=== PATIENT | female | born 1970 | race African-American/Black ===

== ENCOUNTER 2020-01-13 13:41 | Outpatient (CLI) | payer OTHER, MEDICARE, SELFPAY ==
--- NOTE | 2020-01-13 | ECG_ITS ---
Measurements Intervals [place] Rate: 75 P: 60 CA: 161 QRS: -19 QRSD: 102 T: 71 QT: 401 QTc: 448 Interpretive Statements SINUS RHYTHM POSSIBLE LEFT ATRIAL ENLARGEMENT BORDERLINE T WAVE ABNORMALITY- LATERAL LEADS BASELINE ARTIFACT- II, III, AVL, AVF, V4-V6 BORDERLINE ECG Electronically Signed On 01-13-2020 14:51:32 TECHNICAL BUYER by Tavares Gonsales D.O.
== END 2020-01-13 13:42 | disposition home or self-care (01) ==
DX: R94.31 Abnormal electrocardiogram [ECG] [EKG] (principal)
CPT/HCPCS: 93005

== ENCOUNTER 2020-10-25 12:45 | Outpatient (CLI) | payer OTHER, MEDICARE, SELFPAY ==
--- NOTE | ~2020-10-25 | MM_ITS ---
EXAMINATION: MM diagnostic esteban BI w xochilt HISTORY: Breast skin lesions TECHNIQUE: ML, MLO and craniocaudal 3-D tomosynthesis images of both breasts were performed and synth etic 2-D images were generated. CAD analysis was submitted and interpreted. COMPARISON: 04/26/2019, 01/05/2014, 12/26/2013 bilateral digital mammogram examinations BREAST PARENCHYMAL COMPOSITION: The breasts are heterogeneously dense, which may obscure small masses . FINDINGS: No suspicious mass or architectural distortion, malignant calcification, skin thickening or retraction or significant new or developing density is detected. Skin lesions are noted. IMPRESSION: 1. No mammographic evidence of malignancy 2. Routine mammographic screening is recommended. BI-RADS Category 2: Benign finding(s). Reviewed, dictated and finalized at location A. MOMETER TESTER
--- NOTE | ~2020-10-25 | US_ITS ---
EXAMINATION: US pelvic complete w TV DATE: 10/25/2020 14:47 INDICATION: Irregular menstruation Comparison:04/26/2020 TECHNIQUE: Multiple transabdominal and endovaginal sonographic images of the pelvis performed. FINDINGS: The uterus measures 9.6 x 7 x 5 cm. Uterine echotexture is diffusely heterogeneous consiste nt with fibroid changes. There are scattered coarse calcifications. Largest fibroid measures 5.9 cm g reatest dimension. Endometrium is not delineated due to underlying fibroid changes. The ovaries are not visualized. There is no free fluid in the pelvis. There are no abnormal masses seen on either side. IMPRESSION: 1. Enlarged fibroid uterus, largest discrete fibroid measures 5.9 cm greatest dimension. Reviewed, dictated and finalized at location B. MATIC BLOCKER IMPRESSION: 1. Enlarged fibroid uterus, largest discrete fibroid measures 5.9 cm greatest d imension.
== END 2020-10-25 12:46 | disposition home or self-care (01) ==
LOC: ANHIMG 12:47
PROVIDERS: Visit Provider Obstetrics & Gynecology
DX: N64.59 Other signs and symptoms in breast (principal); N92.6 Irregular menstruation, unspecified; D25.9 Leiomyoma of uterus, unspecified
CPT/HCPCS: 76830; 76856; 77062; 77066; G0279

== ENCOUNTER 2022-04-08 08:21 | Outpatient (CLI) | payer MEDICARE, SELFPAY ==
--- NOTE | ~2022-04-08 | MM_ITS ---
EXAMINATION: MM screening esteban BI w xochilt HISTORY: Screening mammogram TECHNIQUE: Craniocaudal and mediolateral oblique 3-D tomosynthesis images were obtained and synthetic 2-D images were generated. CAD analysis was submitted and interpreted. COMPARISON: 10/25/2020, 04/26/2019, 12/26/2013 bilateral mammogram examinations To bilateral diagnostic mammogram BREAST PARENCHYMAL COMPOSITION: The breasts are heterogeneously dense, which may obscure small masses . FINDINGS: There is no evidence of suspicious mass, calcification, or architectural distortion to sugg est malignancy in either breast. There has been no suspicious interval change. IMPRESSION: 1. No mammographic evidence of malignancy. 2. Recommend routine screening mammography in one year. BI-RADS Category 1: Negative Reviewed, dictated and finalized at location A.
== END 2022-04-08 08:22 | disposition home or self-care (01) ==
LOC: ANHIMG 08:22
PROVIDERS: Visit Provider Obstetrics & Gynecology
DX: Z12.31 Encounter for screening mammogram for malignant neoplasm of breast (principal)
CPT/HCPCS: 77063; 77067

== ENCOUNTER 2024-02-12 07:14 | Outpatient (CLI) | payer MEDICARE, SELFPAY ==
--- NOTE | ~2024-02-12 | MM_ITS ---
EXAMINATION: MM screening esteban BI w xochilt HISTORY: Screening TECHNIQUE: Craniocaudal and mediolateral oblique 3-D tomosynthesis images were obtained and synthetic 2-D images were generated. CAD analysis was submitted and interpreted. COMPARISON: Comparison to multiple prior studies sequentially, with oldest reviewed study dated 11/2018. BREAST PARENCHYMAL COMPOSITION: Dense: The breasts are heterogeneously dense, which may obscure small masses FINDINGS: There is no evidence of suspicious mass, calcification, or architectural distortion to sugg est malignancy in either breast. There has been no suspicious interval change. IMPRESSION: 1. No mammographic evidence of malignancy. 2. Recommend routine screening mammography in one year. BI-RADS Category 1: Negative Reviewed, dictated and finalized at location A.
== END 2024-02-12 07:15 | disposition home or self-care (01) ==
PROVIDERS: Visit Provider Obstetrics & Gynecology
DX: Z12.31 Encounter for screening mammogram for malignant neoplasm of breast (principal)
CPT/HCPCS: 77063; 77067

== ENCOUNTER 2024-04-10 08:28 | Outpatient (CLI) | payer MEDICARE, SELFPAY ==
--- NOTE | ~2024-04-10 | XR_ITS ---
Clinical Indication: Bronchitis PA and lateral views of the chest: Comparison: 01/14/2015 Findings: The lungs are clear, without evidence of focal consolidation or pleural effusion. Cardiome diastinal silhouette is within normal limits. Cervicothoracic spinal fixation hardware is present. Impression: Clear lungs. Reviewed, dictated and finalized at location . Impression: Clear lungs.
[2024-04-10 10:32] LABS: Appearance Urine Cloudy (Clear); Bacteria Urine None Seen /hpf; Bilirubin Urine Negative (Negative); Blood Urine Negative (Negative); Color Urine Yellow (Yellow); Glucose Urine UA Negative (Negative); Ketones Urine Negative (Negative); Leukocyte Esterase Ur 3+ LEU/UL (Negative); Nitrate Urine Negative (Negative); Non Pathogenic Casts 0-2; Protein Urine Negative (Negative); Specific Grav Ur 1.014 (1.001-1.035); Squamous Epithelial Cell Urine Moderate /hpf (Few); Urobilinogen Urine 0.2 mg/dL (<2.0); WBC Urine 21-50 /hpf (0-3)
[2024-04-10 10:37] LABS: Alanine Aminotransferase 11 U/L (6-35); Albumin Level 4.9 g/dL (3.5-5.1); Alkaline Phosphatase 116 U/L (38-126); Anion Gap 9 mmol/L (4-12); Aspartate Amino Transferase 20 U/L (14-36); Bilirubin,Total 0.6 mg/dL (0.2-1.3); Blood Urea Nitrogen 10 mg/dL (7-17); Calcium 9.5 mg/dL (8.4-10.2); Carbon Dioxide 29 mmol/L (22-30); Chloride 104 mmol/L (98-107); Cholesterol 223 mg/dL (0-200); Estimated Glomerular Filt Rate > 60; Glucose 88 mg/dL (65-110); HDL Direct 44 mg/dL; Potassium 3.6 mmol/L (3.4-5.0); Sodium 142 mmol/L (137-145); Triglycerides 156 mg/dL (<150)
[2024-04-10 10:39] LABS: Add Urine Microscopic? YES
[2024-04-10 10:48] LABS: LDL Cholesterol Direct 116 mg/dL
[2024-04-10 11:05] LABS: Basophils Percent Auto 0.6 % (0.2-1.2); Eosinophils Absolute Auto 0.1 K/mm3 (0-0.3); Eosinophils Percent Auto 1.4 % (0-4.4); Hematocrit 42.7 % (37.0-47.0); Hemoglobin 13.4 g/dL (12.0-15.0); Immature Granulocyte Absolute 0.02 K/mm3 (0.00-0.031); Immature Granulocyte Percent A 0.3 % (0-0.5); Lymphocytes Absolute Auto 1.51 K/mm3 (0.9-3.2); Lymphocytes Percent Auto 23.2 % (18.3-44.2); Mean Corpuscular HGB Conc 31.4 g/dl (32-36); Mean Corpuscular Hemoglobin 25.4 pg (26-34); Mean Platelet Volume 13.4 fl (7.4-10.4); Monocytes Absolute Auto 0.6 K/mm3 (0.1-0.6); Monocytes Percent Auto 8.6 % (2.6-8.5); Neutrophils Absolute Auto 4.3 K/mm3 (1.3-6.7); Neutrophils Percent Auto 65.9 % (45.5-73.1); Platelet Count Result 172 k/mm3 (150-375); Red Blood Count 5.27 M/mm3 (4.2-5.4); Red Cell Distribution Width 14.1 % (11.5-14.5); White Blood Count 6.5 K/mm3 (4.5-10.0)
== END 2024-04-10 08:29 | disposition home or self-care (01) ==
DX: J40 Bronchitis, not specified as acute or chronic (principal); I10 Essential (primary) hypertension; E66.3 Overweight; Z13.820 Encounter for screening for osteoporosis
CPT/HCPCS: 36415; 71046; 80053; 80061; 81001; 84443; 85025; 85055

== ENCOUNTER 2025-06-15 07:56 | Outpatient (CLI) | payer OTHER, MEDICARE, SELFPAY ==
--- NOTE | ~2025-06-15 | MM_ITS ---
EXAMINATION: screening [facility] BI w xochilt INDICATION: Asymptomatic, referred for screening mammogram COMPARISON: 02/12/2024 through 12/26/2013 TECHNIQUE: Digital Breast Tomosynthesis CC, MLO views of Both breasts were obtained with computer-ai ded detection to assist in interpretation of the study. FINDINGS: There are scattered areas of fibroglandular density. The axillary portion of both breasts are missing on these images. There is no evidence of suspicious mass, calcification, or architectural distortion to suggest malign amber in either breast. There has been no suspicious interval change. IMPRESSION: 1. Incomplete evaluation due to lack of inclusion of the axillary and posterior portion of both hans st on the MLO views. RECOMMENDATION: Repeat bilateral MLO views with inclusion of the posterior breast and axillary regions. BI-RADS Category 0: Incomplete: Needs additional imaging evaluation. Reviewed, dictated and finalized at location B. IMPRESSION: 1. Incomplete evaluation due to lack of inclusion of the axillary and posterio r portion of both breast on the MLO views. RECOMMENDATION: Repeat bilateral MLO views with inclusion of the posterior breast and axillary regions. BI-RADS Category 0: Incomplete: Needs additional imaging evaluation.
--- OUTSIDE RECORDS SUMMARY | 2025-06-15 08:00 | XMS_ITS | Clinical Summary ---
Author Organization [facility] Address [address] [place] [address] Care Team Providers Care Agribusiness Professor Name Role Phone Dmitri Colunga MD Primary Care Provider [phone] Allergies Active Allergy Reactions Criticality Noted Date Comments Baclofen Fatigue Low 12/03/2021 Iodine Rash Medium 12/03/2021 Gadolinium Nausea Only,Unknown Low 05/17/2015 Morphine Itching Low 07/17/2019 Oxycodone Dizziness Low 12/03/2021 Medications hydroCHLOROthiazide 25 MG tablet Take 25 mg by mouth every morning. Active labetalol 200 MG tablet Take 200 mg by mouth 2 (two) times daily. Active Cholecalciferol (VITAMIN D3) 50 MCG (2000 UT) Tab Take 2,000 Units by mouth daily. Active zinc gluconate 50 MG Tab Take 50 mg by mouth daily. Active Multiple Vitamins-Minerals (MULTI-VITAMIN GUMMIES OR) Take 2 tablets by mouth daily. Active ondansetron (ZOFRAN ODT) 4 MG disintegrating tablet Take 1 tablet (4 mg total) by mouth every 8 (eight) hours as needed. 15 tablet 2 Active Social History Tobacco Use Types Packs/Day Years Used Date Smoking Tobacco: Never Smokeless Tobacco: Never Alcohol Use Standard Drinks/Week Comments Never 0 (1 standard drink = 0.6 oz pur e alcohol) Comments No Sex and Gender Information Value Date Recorded Sex Assigned at Not on file Legal Sex Female 5:33 PM CDT Gender Identity Not on file Sexual Orientation Not on file Last Filed Vital Signs Vital Sign Reading Time Taken Comments Blood Pressure 129/97 12/03/2021 7:26 PM GLASS CURVATURE GAUGER Pulse 92 12/03/2021 7:26 PM GLASS CURVATURE GAUGER Temperature 36.3 C (97.3 F) 12/03/2021 1:25 PM GLASS CURVATURE GAUGER Respiratory Rate 16 12/03/2021 6:10 PM GLASS CURVATURE GAUGER Oxygen Saturation 100% 12/03/2021 7:26 PM GLASS CURVATURE GAUGER Inhaled Oxygen Concentration - - Weight 84.7 kg (186 lb 11.7 oz) 12/03/2021 1:25 PM GLASS CURVATURE GAUGER Height 157.5 cm (5' 2) 12/03/2021 1:25 PM GLASS CURVATURE GAUGER Body Mass Index 34.15 12/03/2021 1:25 PM GLASS CURVATURE GAUGER Plan of Treatment Health Maintenance Due Date Last Done Comments Cervical Cancer Screening Pa p Smear (Age 30 to 64) Every 3 Years 1968 Colorectal Cancer Screening Colonoscopy (10 Years) 1968 Annual Physical 1971 Hepatitis C 1986 DTaP, Tdap and Td Vaccines ( 1 - Tdap) 1987 Hepatitis B Vaccines (1 of 3 - 19+ 3-dose series) 1987 Cervical Cancer Screening Pa p with HPV Testing (Age 30 to 64) Every 5 Years 1998 Cervical Cancer Screening with HPV 1998 Mammogram Screening 2008 Pneumococcal Vaccine: 50+ Ye ars (1 of 1 - PCV) 2018 Zoster Vaccines (1 of 2) 2018 COVID-19 Vaccine (1 - 2023-2 5 season) 2024 Meningococcal B Vaccine Aged Out No l onger eligible based on patient's age to complete this topic Meningococcal Vaccine Aged Out No mary malinda eligible based on patient's age to complete this topic RSV Immunizations Under 20 Months Aged Out No longer eligible based on patient's age to complete this topic Insurance MEDICARE Care Teams Agribusiness Professor Relationship Specialty Start Date End Date Dmitri Colunga MD PCP - General FAMILY PRACTICE 12/03/21
== END 2025-06-15 07:57 | disposition home or self-care (01) ==
LOC: ANHIMG 07:58
PROVIDERS: Visit Provider Obstetrics & Gynecology
DX: Z12.31 Encounter for screening mammogram for malignant neoplasm of breast (principal); R92.8 Other abnormal and inconclusive findings on diagnostic imaging of breast
CPT/HCPCS: 77063; 77067

== ENCOUNTER 2025-09-08 08:14 | Outpatient (CLI) | payer OTHER, MEDICARE, SELFPAY ==
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
--- OUTSIDE RECORDS SUMMARY | 2025-09-08 08:36 | XMS_ITS | Clinical Summary ---
Author Organization [facility] Address [address] [place] [address] Care Team Providers Care Wind Turbine Performance Engineer Name Role Phone Dmitri Colunga MD Unavailable [phone] Salazar Loyd MD Unavailable Fred Christian MD Unavailable [phone] Jorge Luis Maxwell DO Primary Care Provider Allergies Active Allergy Reactions Criticality Noted Date Comments Baclofen Fatigue Low Gadolinium-Containing Contrast Media Unknown 05/11/2018 Gadolinium-Containing Contrast Media Nausea only Low 05/17/2015 Iodinated Contrast Media Rash Medium Iodine Rash Medium 12/03/2021 Morphine Itching Low 07/17/2019 Oxycodone Dizziness Low Medications labetalol (NORMODYNE,DUGGAN DATE) 200 mg tablet Take 200 mg by mouth 2 (two) times a day Active multivit-min/ir on/folic/vit K1 (CENTRUM CHEWABLES ORAL) Take 2 tablets by mouth every morning Active zinc 50 mg tablet Take by mouth daily Active cholecalciferol , vitamin D3, (VITAMIN D3 ORAL) Take 1 tablet by mouth daily Active hydroCHLOROthia zide (HYDRODIURIL) 25 mg tablet Take 1 tablet (25 mg total) by mouth daily 12/28/2023 Active Active Problems Problem Noted Date Diagnosed Date Neurofibroma 07/10/2022 Overview (07/10/2022): Added automatically from request for surgery [id number] Spinal cord lesion 06/23/2019 Overview (06/23/2019): Added automatically from request for surgery [id number] Lumbar radiculopathy 07/06/2018 Other chronic pain 07/06/2018 Neurofibromatosis, 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) - Signed by Sophy Montgomery FORENSIC COMPUTER EXAMINER on 09/11/2019 Neuralgia 07/06/2018 Nodular adrenal cortex 10/15/2015 Degenerative cervical spinal stenosis 10/12/2015 Hypertension 10/12/2015 Abnormal finding in urine 08/20/2015 Low bone density 08/17/2015 Osteopenia 07/13/2015 Neoplastic disease 05/20/2015 Uterine myoma 06/19/2009 Encounters Date Type Department Care Team Description 08/28/2025 Telephone [facility] Medicine Scheduling [address] [place] [address] Didi Griffiths from Last 3 Months Surgical History Surgery Date Site/Laterality Comments NECK SURGERY 08/26/2015 - 09/25/2015 resection of BL C1 tumor with C1 to T1 fusion [facility] LUMBAR PUNCTURE WO INJECTION, THERAPEUTIC 08/02/2019 N/A NECK SURGERY 08[facility]2019 [facility] Medical History Medical History Date Comments Personal history of other di seases of the circulatory system History of hypertension - (A dded by Conv) Other chronic pain Chronic pain - (Added by Conv) Back pain Cervical pain Cervicalgia Chronic pain Degenerative cervical spinal stenosis Headache Hypertension Spinal cord lesion (HCC) Von Recklinghausen disease Neurofibroma Cervical spinal stenosis GERD (gastroesophageal reflux disease) Family History Medical History Relation Name Comments Heart disease Mother Pacemaker Hypertension Mother Family history of hypertension - (Added by TW Conv) Heart disease Other Hyperlipidemia Other Family histor y of hypercholesterolemia - (Added by TW Conv) Anesthesia problems Neg Hx Stroke Neg Hx Relation Name Status Comments Father Mother Alive Other Social History Tobacco Use Types Packs/Day Years Used Date Smoking Tobacco: Never Smokeless Tobacco: Never Tobacco Cessation:Counseling Given: Not Answered Alcohol Use Standard Drinks/Week Comments Never 0 (1 standard drink = 0.6 oz pur e alcohol) AUDIT-C Answer Date Recorded Q1: How often do you have a drink containing alcohol? Never 08/15/2022 Q2: How many drinks containi ng alcohol do you have on a typical day when you are drinking? Patient does not drink Q3: How often do you have si x or more drinks on one occasion? Never 08/15/2022 Comments No Sex and Gender Information Value Date Recorded Sex Assigned at Not on file Legal Sex Female 1:28 AM WATCH REPAIR PERSON Gender Identity Not on file Sexual Orientation Not on file Occupation Industry Job Start Date Job End Date Disability Not on file Not on file Not on file Obstetrics History Last Filed Vital Signs Vital Sign Reading Time Taken Comments Blood Pressure 144/93 08/15/2022 9:05 AM CDT Pulse 79 08/15/2022 9:10 AM CDT Temperature 36.3 C (97.3 F) 08/15/2022 8:45 AM CDT Respiratory Rate 10 08/15/2022 9:10 AM CDT Oxygen Saturation 96% 08/15/2022 9:10 AM CDT Inhaled Oxygen Concentration - - Weight 83.9 kg (185 lb) 07/21/2022 4:35 PM CDT Height 157.5 cm (5' 2) 07/21/2022 4:35 PM CDT Body Mass Index 33.84 07/21/2022 4:35 PM CDT Plan of Treatment Health Maintenance Due Date Last Done Comments Breast Cancer Screening-Mammogram 1968 Cervical Cancer Screening 1968 Colon Cancer Screening-Colonoscopy 1968 Depression Screening 1968 Hepatitis C Screening 1968 DTaP/Tdap/Td Vaccine (1 - Tdap) 1979 Hepatitis B Screening 1986 Regular Well Visit/Exam 18-64 1986 Zoster Vaccine (1 of 2) 2018 Influenza Vaccine (#1) 2025 Pneumococcal vaccine <65 Aged Out No longer eligible based on patient's age to complete this topic Medical Devices Implanted Type Area Area Attendant Device Identifier Shelf Expiration Date Model / Serial / Lot Cervico-Thoracic Spine Fusion Instrumentation Cervical -Thoraci c Spine [employer] [id number] - [id number] - [id number] Implanted:Qty: 1 on 08/01/2019 by Fred Christian MD at [facility] N/A: Spine Lumbar [employer] 06/24/2024 [id number] / [id number] / Spinal Graft Tech [id number] Magnifuse 5x1cm Spine Cervical Posterior Graft Bone Demineralized - [id number] - [id number] Implanted:Qty: 1 on 08/01/2019 by Fred Christian MD at [facility] N/A: Spine Lumbar Spinal Graft Tech 12/04/2020 [id number] / [id number] / Spinal Graft Tech [id number] Magnifuse 10x1cm Graft Bone Demineralized Bone Matrix - [id number] - [id number] Implanted:Qty: 1 on 08/01/2019 by Fred Christian MD at [facility] N/A: Spine Lumbar Spinal Graft Tech 01/22/2021 [id number] / [id number] / Linda Spine [id number] Oasys 3.5mm 350mm Occipitocervicothoracic Spine Large Esau Spinal - [id number] Implanted:Qty: 1 on 08/01/2019 by Fred Christian MD at [facility] N/A: Spine Lumbar Moultrie Spine [id number] / / Moultrie Spine [id number] Oasys Occipito Cervico Thoracic Nicole Spinal - [id number] Implanted:Qty: 16 on 08/01/2019 by Fred Christian MD at [facility] N/A: Spine Lumbar Moultrie Spine [id number] / / Moultrie Spine [id number] Oasys 4mm 24mm Bias Angle Polyaxial Spine Occipitocervicothoracic - [id number] Implanted:Qty: 1 on 08/01/2019 by Fred Christian MD at [facility] N/A: Spine Lumbar Moultrie Spine [id number] / / Moultrie Spine [id number] Oasys 4mm 32mm Bias Angle Polyaxial Spine Occipitocervicothoracic - [id number] Implanted:Qty: 1 on 08/01/2019 by Fred Christian MD at [facility] N/A: Spine Lumbar Linda Spine [id number] / / Linda Spine [id number] Oasys 4.5mm 32mm Polyaxial Spine Occipitocervicothoracic Low - [id number] Implanted:Qty: 3 on 08/01/2019 by Fred Christian MD at [facility] N/A: Spine Lumbar Linda Spine [id number] / / Moultrie Spine [id number] Oasys 4.5mm 28mm Polyaxial Spine Occipitocervicothoracic Low - [id number] Implanted:Qty: 1 on 08/01/2019 by Fred Christian MD at [facility] N/A: Spine Lumbar Linda Spine [id number] / / Moultrie Spine [id number] Oasys 4.5mm 44mm Polyaxial Spine Occipitocervicothoracic Low - [id number] Implanted:Qty: 2 on 08/01/2019 by Fred Christian MD at [facility] N/A: Spine Lumbar Linda Spine [id number] / / Core Link [id number] Bone Matrix 10cc H-Genin Crush Demnlzd - [id number] - [id number] Implanted:Qty: 1 on 08/01/2019 by Fred Christian MD at [facility] N/A: Spine Lumbar Core Link 01/08/2020 [id number] / [id number] / [id number] Insurance [employer] OPEN ACCESS COMMERCIAL GENERIC MEDICARE [facility] MEDICARE MEDICARE MEDICARE [address] [employer] OPEN ACCESS COMMERCIAL GENERIC MEDICARE Advance Directives For more information, please contact: [phone] * Full Code (Latest Code Status on File) Date Activated Date Inactivated Comments 08/02/2019 1:26 AM 08/05/2019 7:46 PM Care Teams Wind Turbine Performance Engineer Relationship Specialty Start Date End Date Jorge Luis Maxwell DO [address] [place] [address] PCP - General 03/09/21 Dmitri Colunga MD 01/24/21 Salazar Loyd MD [address] [place] [address] Radiation Oncologist Radiation Oncology 09/09/19 Fred Christian MD [address] [place] [address] Referring Physician Neurosurgery 09/11/19
--- OUTSIDE RECORDS SUMMARY | 2025-09-08 08:36 | XMS_ITS | Encounter Summary ---
Author Organization [facility] Address [address] [place] [address] Care Team Providers Care Salad Chef Name Role Phone Dmitri Colunga MD Primary Care Provider [phone] Dmitri Colunga MD Unavailable [phone] Salazar Loyd MD Unavailable Fred Christian MD Unavailable [phone] Jorge Luis Maxwell DO Primary Care Provider Jorge Luis Maxwell DO Primary Care Provider Cadence Jiang DPT Unavailable [phone] Cadence Jiang DPT Unavailable [phone] Encounter Details Date Type Department Care Team (Late st Contact Info) Description 06/11/2020 Telephone [facility] ([facility]) [address] [place] [id number] Fred Christian MD [address] [place] [address] DR DEPT NEUROSURGERY, [address] [address] Social History Tobacco Use Types Packs/Day Years Used Date Smoking Tobacco: Never Smokeless Tobacco: Never Alcohol Use Standard Drinks/Week Comments Never 0 (1 standard drink = 0.6 oz pur e alcohol) AUDIT-C Answer Date Recorded Frequency of Alcohol Consumption Never 07/17/2019 Average Number of Drinks Not on file 019 Frequency of Binge Drinking Not on file 06/27 Comments No Sex and Gender Information Value Date Recorded Sex Assigned at Not on file Legal Sex Female 1:28 AM RESTAURANT CREW MEMBER Gender Identity Not on file Sexual Orientation Not on file documented as of this encounter Plan of Treatment Not on file documented as of this encounter Visit Diagnoses Not on filedocumented in this encounter Care Teams Salad Chef Relationship Specialty Start Date End Date Dmitri Colunga MD PCP - General 03/20/17 01/23/21 Jorge Luis Maxwell DO [address] [place] [id number] PCP - General 03/09/21 Jorge Luis Maxwell DO [address] [place] [address] PCP - General 02/22/21 03/08/21 Dmitri Colunga MD 01/24/21 Salazar Loyd MD [address] [place] [address] Radiation Oncologist Radiation Oncology 09/09/19 Fred Christian MD [address] [place] [address] Referring Physician Neurosurgery 09/11/19 Cadence Jiang DPT [address] [place] [address] [place] [address] Physical Therapist Physical Therapy 08/24/22 01/23/24 Cadence Jiang DPT [address] [place] [address] [place] [address] Physical Therapist Physical Therapy 08/24/22 01/23/24 documented as of this encounter
== END 2025-09-08 08:15 | disposition home or self-care (01) ==
DX: M54.2 Cervicalgia (principal); M54.50 Low back pain, unspecified; V89.2XXA Person injured in unspecified motor-vehicle accident, traffic, initial encounter
CPT/HCPCS: 72040; 72100